=== PATIENT | female | born 1990 | race Caucasian/White ===

== ENCOUNTER 2019-01-03 15:07 | Emergency (ER) | payer MEDICAID ==
[~2019-01-03] VITALS: Ht 157.5 cm; Wt 68.5 kg
[~2019-01-03 15:07] MED LIST: HYDR-4011 PO; PREN-39 PO
[2019-01-03 15:11] VITALS: Ht 157.5 cm; Wt 68.5 kg
--- NOTE | 2019-01-03 17:25 | ERD ---
ER Documentation Chief Complaint Chief Complaint 7 WEEKS PREG; VAG BLEEDING THAT STARTED TODAY HPI This is a 28-year-old female, who presents at roughly 7 weeks with complaints of vaginal bleeding since this morning. Patient states that as she was urinating when she went to wipe she noticed some blood on the tissue paper. Patient did not pass any clots. Patient denies fever, chills, dizziness, lightheadedness, nausea, vomiting, diarrhea, constipation, hematemesis, melena, hematochezia, abdominal pain, pelvic pain, dysuria, hematuria. Patient was last seen by her OB doctor yesterday and had an ultrasound which showed fetuses heartbeat. Patient's OB doctor is Dr. michael. ROS All systems reviewed and are negative except as per history of present illness. Medications Home Meds Active Scripts Hydrocodone/Acetaminophen (Michie 5-325 Tablet) 1 Each Tablet, 1 TAB PO Q6H PRN for SEVERE PAIN LEVEL 7-10, #15 TAB Prov:VALE KOLB MD 02/19/18 Reported Medications Vits W-Ca,Fe,Fa(<1MG) ( Vitamins) 1 Tab Tablet, PO DAILY 07/04/11 Allergies Allergies: Coded Allergies: No Known Allergies (Verified Allergy, 07/04/11) PMhx/Soc History of Surgery: No Anesthesia Reaction: No Hx Neurological Disorder: No Hx Respiratory Disorders: No Hx Cardiac Disorders: No Hx Psychiatric Problems: No Hx Miscellaneous Medical Probl: No Hx Alcohol Use: Yes (2 beers few hours ago. ) Hx Substance Use: No Hx Tobacco Use: No FmHx Family History: No diabetes Physical Exam Vitals Vital Signs Date Temp Pulse Resp B/P (MAP) Pulse Ox O2 O2 Flow FiO2 Time Delivery Rate 01/03/19 98.5 82 16 120/65 98 15:11 (83) Physical Exam Physical Exam Vitals signs: Reviewed by me. General: Well developed, well nourished, in no acute distress. Patient is awake and alert. Resting peacefully on stretcher Head: Normocephalic, atraumatic. Eyes: Normal conjunctiva, Pupils PERRLA, EOM intact grossly ENT: Pharynx is clear, Moist mucous membranes, external ears, nose and mouth normal Neck: Supple, no masses, lymphadenopathy or JVD Respiratory: Clear to auscultation bilaterally with no wheezing, rhonchi, rales, no distress Cardiovascular: RRR, no murmurs, rubs, or gallops Abdominal: Soft, , nondistended, no peritoneal signs, no rigidity, no surgical abdomen, bowel sounds present all 4 quadrants, nontender light deep palpation all 4 quadrants, McBurney's point nontender, no rebound tenderness, no suprapubic tenderness Back: No midline tenderness. No flank tenderness Neurologic: Alert and oriented, moving all extremities, normal speech, no focal weakness, no cerebellar signs. Normal mentation Skin: warm and dry, No rash Psych: Normal mood Result Diagram: 01/03/19 1719 01/03/19 1719 Results 24 hrs Laboratory Tests Test 01/03/19 17:02 01/03/19 17:19 Urine Color YELLOW Urine Clarity CLEAR Urine pH 6.0 Urine Specific [place] 1.018 Urine Ketones NEGATIVE mg/dL Urine Nitrite NEGATIVE mg/dL Urine Bilirubin NEGATIVE mg/dL Urine Urobilinogen NEGATIVE mg/dL Urine Leukocyte Esterase NEGATIVE Ed/ul Urine Microscopic RBC 0 /HPF Urine Microscopic WBC 1 /HPF Urine Squamous Epithelial Cells FEW /HPF Urine Bacteria FEW /HPF Urine Hemoglobin 3+ mg/dL Urine Glucose NEGATIVE mg/dL Urine Total Protein NEGATIVE mg/dl White Blood Count 9.4 10^3/ul Red Blood Count 4.42 10^6/ul Hemoglobin 14.4 g/dl Hematocrit 42.0 % Mean Corpuscular Volume 95.0 fl Mean Corpuscular Hemoglobin 32.6 pg Mean Corpuscular Hemoglobin Concent 34.3 g/dl Red Cell Distribution Width 12.3 % Platelet Count 229 10^3/UL Mean Platelet Volume 9.8 fl Immature Granulocytes % 0.200 % Neutrophils % 65.1 % Lymphocytes % 29.6 % Monocytes % 4.6 % Eosinophils % 0.3 % Basophils % 0.2 % Nucleated Red Blood Cells % 0.0 /100WBC Immature Granulocytes # 0.020 10^3/ul Neutrophils # 6.2 10^3/ul Lymphocytes # 2.8 10^3/ul Monocytes # 0.4 10^3/ul Eosinophils # 0.0 10^3/ul Basophils # 0.0 10^3/ul Nucleated Red Blood Cells # 0.0 10^3/ul Sodium Level 140 mmol/L Potassium Level 5.0 mmol/L Chloride Level 103 mmol/L Carbon Dioxide Level 25 mmol/L Anion Gap 12 Blood Urea Nitrogen 11 mg/dl Creatinine 0.55 mg/dl Est Glomerular Filtrat Rate mL/min > 60 mL/min Glucose Level 96 mg/dl Calcium Level 10.3 mg/dl Total Bilirubin 0.2 mg/dl Direct Bilirubin 0.00 mg/dl Indirect Bilirubin 0.2 mg/dl Aspartate Amino Transf (AST/SGOT) 49 IU/L Alanine Aminotransferase (ALT/SGPT) 63 IU/L Alkaline Phosphatase 62 IU/L Total Protein 8.3 g/dl Albumin 4.7 g/dl Globulin 3.60 g/dl Albumin/Globulin Ratio 1.30 Beta HCG, Quantitative 30867.0 mIU/ml Procedures/MDM EKG, MONITORS, & DIAGNOSTIC IMAGING: [place] [address] Radiology Main Line: [phone] DIAGNOSTIC IMAGING REPORT Patient: SAVANNAH MCALLISTER : 1990 Age: 28 Sex: F MR #: [id number] DOS: 01/03/19 1653 Ordering MD: CHUCK JOLLEY PA-C Location: [facility] Room/Bed: PROCEDURE: US First Trimester, Transabdominal CLINICAL INDICATION: patient with vaginal bleeding. TECHNIQUE: Real-time transabdominal obstetrical ultrasound of the maternal pelvis and a first trimester with image documentation. COMPARISON: None FINDINGS: GESTATION: Single intrauterine gestation demonstrated. [place]-rump length correlates to gestational age of 6 weeks 1 day. Appropriate cardiac activity is demonstrated. heart rate is 126 beats per minute. PLACENTA/AMNIOTIC FLUID: No subchorionic hemorrhage demonstrated. UTERUS/CERVIX: Unremarkable. No myometrial mass. OVARIES: Right ovary not identified. No right adnexal abnormality. Left ovary measures 3.1 x 2.2 x 2.2 cm. There is a 1.9 cm hemorrhagic cyst, likely corpus luteum of . FREE FLUID: No free fluid in the cul-de-sac. IMPRESSION: 1. Single live early intrauterine gestation dated 6 weeks 1 day. Appropriate cardiac activity is documented. 2. 1.9 cm hemorrhagic left ovarian cyst, likely corpus luteum of . 3. No acute abnormality. Source of vaginal bleeding is not demonstrated. RPTAT: [facility] Claudy Patel Physician Date Time Electronically viewed and signed by Claudy Patel Physician Economics Consultant on 01/03/2019 18:52 RmC/ CC: CHUCK JOLLEY PA-C [phone] LAB INTERPRETATION: CBC shows no evidence of hemorrhage or infection Urinalysis shows 1 WBC, 0 RBC, no leukocyte esterase and no nitrite Chemistry shows no evidence of significant electrolyte abnormalities or renal insufficiency Liver function test shows no evidence of acute biliary or hepatic dysfunction, mildly elevated AST 49 Urinalysis shows few bacteria, 1 microscopic WBC, no RBCs, no leukocyte esterase and no nitrite Blood type a positive Hcg 54528.0 ER COURSE: The patient was stable throughout ED course. I kept the patient and/or family informed of laboratory and diagnostic imaging results throughout the emergency room course. The patient was promptly evaluated and a treatment plan was devised based on H&P and other data. This plan was discussed with the patient who agreed and had no further questions or concerns prior to discharge. MEDICAL DECISION MAKING: This is a 28 year-old female, G [id number], who presents with vaginal bleeding at roughly 7 weeks . Ultrasound confirms an intrauterine . Ectopic not visualized. Patient is A+ and does not require any rhogam. She is hemodynamically stable. Patient will need to repeat quantitative hCG in the next 48-72 days to show a upward trend. Advise for patient either return to the ER for repeat quantitative hCG or to follow-up with her PLASMA PROCESSOR doctor for this. At this time there is no PLASMA PROCESSOR emergency. No evidence of sepsis, meningitis, ectopic , intracranial hemorrhage, tubo-ovarian abscess, ovarian torsion. Advised to return to ER with any worsening symptoms. DISPOSITION PLAN: We discussed follow up with the patient's primary care doctor within 24 to 48 hours. Patient counseled regarding my diagnostic impression and care plan. Prior to discharge all questions answered. Pt agrees with treatment plan and understands strict return precautions. Precautionary instructions provided including instructions to return to the ER if not improving or for any worsening or changing symptoms or concerns. SPECIALIST FOLLOW UP RECOMMENDED: obgyn Patient has been advised to follow up with primary care in 1-2 days. Disclaimer: Inadvertent spelling and grammatical errors are likely due to EHR/dictation software use and do not reflect on the overall quality of patient care. Also, please note that the electronic time recorded on this note does not necessarily reflect the actual time of the patient encounter. Departure Diagnosis: Primary Impression: Vaginal bleeding in patient at less than 20 weeks gestation Condition: Stable Patient Instructions: Bleeding During Early , Possible Miscarriage (Threatened ) Referrals: CLIFFORD WALTER MD PLASMA PROCESSOR REFERRAL LIST Additional Instructions: Patient was advised to follow-up with her OB specialist in 48-72 hours or to return to the emergency department to have repeat ultrasound and repeat blood work. Patient advised to return to the ED immediately for new or worsening symptoms. Patient advised to follow up with primary care provider in the next 24-48 hours. Patient verbalized understanding and agrees with treatment plan and course of action. If patient has no primary care they may follow up with one of the community clinics listed on the following page or one of the options listed below [facility] + [address] [address] or [facility] [address] [place] [address] or [facility] [address] [place] [address] CHUCK JOLLEY PA-C Jan 03, 2019 17:25
[2019-01-03 20:23] VITALS: BP 104/54; PULSE 83; RESP 18
== END 2019-01-03 20:25 | disposition home or self-care (01) ==
LOC: FTE 15:07
DX: O20.9 Hemorrhage in early pregnancy, unspecified (principal); Z3A.01 Less than 8 weeks gestation of pregnancy
CPT/HCPCS: 36415; 76801; 80053; 81001; 84702; 85025; 86900; 86901; 87086; Z7502